=== PATIENT | female | born 1940 | race Caucasian/White ===

== ENCOUNTER 2016-09-02 00:27 | Inpatient (IN) | payer OTHER ==
[2016-09-02] VITALS (8 sets, daily range): BP systolic 121–186; BP diastolic 59–91; PULSE 60–100; RESP 16–20; TEMP 97–98.8; O2SAT 16–99
[~2016-09-02] VITALS: Ht 162.6 cm; Wt 44.9 kg
[2016-09-02] MEDS ORDERED: HYDR-4023 PO (01:09)
[2016-09-02] MEDS ORDERED: LOSA100T11 PO (01:09)
[2016-09-02] MEDS ORDERED: MELO15TA13 PO (01:09)
[2016-09-02] MEDS ORDERED: TRAM50TA92 PO (01:09)
[2016-09-02] MEDS ORDERED: ALEN10TA6 PO (01:10)
[2016-09-02] MEDS ORDERED: HYDROmorphone 1 MG INJ. 1 MG/ML AMPUL IVP ONE ×2 (01:15→05:00)
[2016-09-02 01:38] LABS: BASOPHILS % (AUTO) 0.3 % (0.0-2.0); EOSINOPHILS % (AUTO) 0.5 % (0.0-4.0); HEMATOCRIT 34.7 % (36-48); HEMOGLOBIN 11.4 g/dL (12.0-16.0); LYMPHOCYTES # (AUTO) 1.3 K/uL (1.0-5.5); LYMPHOCYTES % (AUTO) 15.2 % (20.5-51.5); MEAN CORPUSCULAR HEMOGLOBIN 28 pg (27-31); MEAN CORPUSCULAR HGB CONC 33 % (32-36); MEAN CORPUSCULAR VOLUME 85 fL (79.0-98.0); MONOCYTES # (AUTO) 1.1 K/uL (0.0-1.0); MONOCYTES % (AUTO) 12.5 % (1.7-9.3); NEUTROPHILS # (AUTO) 6.1 K/uL (1.8-7.7); NEUTROPHILS % (AUTO) 71.5 % (40.0-70.0); PLATELET COUNT (AUTO) 208 K/uL (130-430); RED BLOOD CELL COUNT(AUTO) 4.06 MIL/uL (4.2-6.2); RED CELL DISTRIBUTION WIDTH 12.4 % (9.0-15.0); WHITE BLOOD COUNT (AUTO) 8.5 K/uL (4.8-10.8)
[2016-09-02 01:45] LABS: ANION GAP 8 (5-15); CHLORIDE 104 mmol/L (98-107); GLUCOSE 131 mg/dL (70-99); POTASSIUM 3.5 mmol/L (3.5-5.1); SODIUM SERUM 139 mmol/L (136-145); UREA NITROGEN, BLOOD 19 mg/dL (8-21)
[2016-09-02 01:51] LABS: ALANINE AMINOTRANSFERASE 20 U/L (12-78); ALBUMIN 3.7 g/dL (3.4-4.8); ASPARTATE AMINOTRANSFERASE 20 U/L (10-37); TOTAL BILIRUBIN 0.6 mg/dL (0.0-1.0); TOTAL PROTEIN, SERUM 6.9 g/dL (6.4-8.3)
[2016-09-02] MEDS ORDERED: ACETAMINOPHEN 325 MG TABLET PO PRN (05:15)
[2016-09-02] MEDS ORDERED: LR 1,000 ML IV ONE (05:15)
[2016-09-02] MEDS ORDERED: ONDANSETRON HCL 4 MG/2 ML VIAL IVP PRN (05:15)
[2016-09-02] MEDS: HYDROcodone/ACETAMIN 10-325 MG TAB PO PRN (12:56)
[2016-09-02] MEDS ORDERED: DOCUSATE SODIUM 100 MG CAPSULE PO ONE (17:15)
[2016-09-02] MEDS ORDERED: MAGNESIUM CITRATE 300 ML ORAL SOLUTION PO ONE (17:15)
[2016-09-02] MEDS: DOCUSATE SODIUM 100 MG CAPSULE PO SCH (20:36)
[2016-09-03 00:44] VITALS: BP 140/66; PULSE 94; RESP 17; TEMP 99.1; O2SAT 96
[2016-09-03 04:00] VITALS: BP 132/64; PULSE 87; RESP 17; TEMP 98.9; O2SAT 95
[2016-09-03 07:56] LABS: BASOPHILS % (AUTO) 0.4 % (0.0-2.0); EOSINOPHILS # (AUTO) 0.1 K/uL (0.0-0.4); EOSINOPHILS % (AUTO) 0.9 % (0.0-4.0); HEMATOCRIT 31.7 % (36-48); HEMOGLOBIN 10.5 g/dL (12.0-16.0); LYMPHOCYTES # (AUTO) 1.2 K/uL (1.0-5.5); LYMPHOCYTES % (AUTO) 17.8 % (20.5-51.5); MEAN CORPUSCULAR HEMOGLOBIN 28 pg (27-31); MEAN CORPUSCULAR HGB CONC 33 % (32-36); MEAN CORPUSCULAR VOLUME 84 fL (79.0-98.0); MONOCYTES # (AUTO) 0.7 K/uL (0.0-1.0); MONOCYTES % (AUTO) 10.6 % (1.7-9.3); NEUTROPHILS % (AUTO) 70.3 % (40.0-70.0); PLATELET COUNT (AUTO) 199 K/uL (130-430); RED BLOOD CELL COUNT(AUTO) 3.76 MIL/uL (4.2-6.2); RED CELL DISTRIBUTION WIDTH 12.4 % (9.0-15.0)
[2016-09-03 08:00] VITALS: BP 148/75; PULSE 87; RESP 16; TEMP 97.8; O2SAT 97
[2016-09-03 08:05] LABS: INR 0.9 (0.8-1.2); PROTHROMBIN TIME 10.3 SECS (9.5-12.5)
[2016-09-03 08:17] LABS: ALANINE AMINOTRANSFERASE 18 U/L (12-78); ALBUMIN 3.1 g/dL (3.4-4.8); ANION GAP 6 (5-15); ASPARTATE AMINOTRANSFERASE 18 U/L (10-37); CALCIUM 8.2 mg/dL (8.4-11.0); CHLORIDE 106 mmol/L (98-107); CREATININE 0.44 mg/dL (0.55-1.30); GLUCOSE 114 mg/dL (70-99); LIPASE 180 U/L (73-393); POTASSIUM 3.8 mmol/L (3.5-5.1); SODIUM SERUM 138 mmol/L (136-145); TOTAL BILIRUBIN 0.8 mg/dL (0.0-1.0); TOTAL PROTEIN, SERUM 6.2 g/dL (6.4-8.3); UREA NITROGEN, BLOOD 13 mg/dL (8-21)
[2016-09-03] MEDS ORDERED: DIATR MEGLU/DIATRIZ SOD 30 ML SOLUTION PO ONE (08:37)
[2016-09-03] MEDS: HYDROcodone/ACETAMIN 10-325 MG TAB PO PRN ×2 (08:49→22:01)
[2016-09-03] MEDS: DOCUSATE SODIUM 100 MG CAPSULE PO SCH ×2 (09:00→21:00)
[2016-09-03] MEDS: POLYETHYLENE GLYCOL 3350, 17 GM/ POWD.PACK PO SCH (09:00)
[2016-09-03 12:00] VITALS: BP 150/67; PULSE 67; RESP 18; TEMP 97.4; O2SAT 100
[2016-09-03 17:00] VITALS: BP 126/58; PULSE 73; RESP 18; TEMP 98; O2SAT 96
[2016-09-03] MEDS ORDERED: BISACODYL 5 MG TABLET.DR (DULCOLAX) PO ONE (17:00)
[2016-09-03] MEDS ORDERED: GOLYTELY / COLYTE SOLUTION 4 LITERS PO ONE (18:00)
[2016-09-03 20:00] VITALS: BP 156/77; PULSE 66; RESP 18; TEMP 99.6; O2SAT 98
[2016-09-04 00:03] VITALS: BP 131/57; PULSE 83; RESP 17; TEMP 98.4; O2SAT 98
[2016-09-04 04:02] VITALS: BP 137/58; PULSE 88; RESP 15; TEMP 97.2; O2SAT 97
[2016-09-04] MEDS: HYDROmorphone 1 MG INJ. 1 MG/ML AMPUL IVP PRN ×3 (04:51→20:04)
[2016-09-04 07:28] LABS: BASOPHILS % (AUTO) 0.3 % (0.0-2.0); EOSINOPHILS # (AUTO) 0.1 K/uL (0.0-0.4); EOSINOPHILS % (AUTO) 0.6 % (0.0-4.0); HEMATOCRIT 32.3 % (36-48); HEMOGLOBIN 10.6 g/dL (12.0-16.0); LYMPHOCYTES # (AUTO) 1.3 K/uL (1.0-5.5); LYMPHOCYTES % (AUTO) 12.1 % (20.5-51.5); MEAN CORPUSCULAR HEMOGLOBIN 28 pg (27-31); MEAN CORPUSCULAR HGB CONC 33 % (32-36); MEAN CORPUSCULAR VOLUME 86 fL (79.0-98.0); MONOCYTES % (AUTO) 9.2 % (1.7-9.3); NEUTROPHILS % (AUTO) 77.8 % (40.0-70.0); PLATELET COUNT (AUTO) 182 K/uL (130-430); RED BLOOD CELL COUNT(AUTO) 3.78 MIL/uL (4.2-6.2); RED CELL DISTRIBUTION WIDTH 12.4 % (9.0-15.0); WHITE BLOOD COUNT (AUTO) 10.4 K/uL (4.8-10.8)
[2016-09-04] MEDS: DOCUSATE SODIUM 100 MG CAPSULE PO SCH ×2 (08:07→20:05)
[2016-09-04] MEDS: POLYETHYLENE GLYCOL 3350, 17 GM/ POWD.PACK PO SCH (08:08)
[2016-09-04 09:00] VITALS: BP 140/78; PULSE 95; RESP 18; TEMP 98; O2SAT 99
[2016-09-04] MEDS ORDERED: MIDAZOLAM HCL 5 MG/5 ML VIAL ONE (10:51)
[2016-09-04] MEDS ORDERED: SIMETHICONE 40 MG/0.6 ML ML ONE (10:52)
[2016-09-04 12:00] VITALS: BP 144/84; PULSE 94; RESP 21; TEMP 97.2; O2SAT 99
[2016-09-04] MEDS: MEPERIDINE HCL/PF 50 MG/ML AMP ONE ×6 (14:25→16:15)
[2016-09-04] MEDS: MIDAZOLAM HCL 5 MG/5 ML VIAL ONE ×7 (14:25→16:14)
[2016-09-04 14:29] VITALS: Ht 162.6 cm; Wt 44.9 kg
[2016-09-04 16:50] VITALS: BP 136/62; PULSE 80; RESP 17; TEMP 97.4; O2SAT 95
[2016-09-04] MEDS: HYDROcodone/ACETAMIN 10-325 MG TAB PO PRN (18:49)
[2016-09-04 19:30] VITALS: BP 152/75; PULSE 102; RESP 19; TEMP 97; O2SAT 99
[2016-09-05 04:00] VITALS: BP 140/77; PULSE 99; RESP 18; TEMP 98.3; O2SAT 97
[2016-09-05] MEDS: HYDROmorphone 1 MG INJ. 1 MG/ML AMPUL IVP PRN (06:14)
[2016-09-05 08:00] VITALS: BP 141/70; PULSE 102; RESP 18; TEMP 98.6; O2SAT 98
[2016-09-05] MEDS: DOCUSATE SODIUM 100 MG CAPSULE PO SCH (08:17)
[2016-09-05] MEDS: POLYETHYLENE GLYCOL 3350, 17 GM/ POWD.PACK PO SCH (08:17)
[2016-09-05 09:49] VITALS: BP 141/70; PULSE 122; RESP 18; TEMP 98.6; O2SAT 98
[2016-09-05] MEDS ORDERED: HYDR-1189 PO (12:22)
[2016-09-05] MEDS ORDERED: SENN-153 PO (12:23)
[2016-09-05 12:48] VITALS: BP 142/77; PULSE 104; RESP 18; TEMP 97.1; O2SAT 99
== END 2016-09-05 14:40 | disposition home or self-care (01) | DRG 436 ==
LOC: SED 00:27 → SMU 05:08
PROVIDERS: ADMIT Internal Medicine Hospice and Palliative Medicine; ATTEND Internal Medicine Hospice and Palliative Medicine
PROC: 0W9G3ZX Drainage of Peritoneal Cavity, Percutaneous Approach, Diagnostic (ICD-10-PCS; 2016-09-02)
PROC: 0DB98ZX Excision of Duodenum, Via Natural or Artificial Opening Endoscopic, Diagnostic (ICD-10-PCS; principal; 2016-09-04 13:00)
PROC: 0DJD8ZZ Inspection of Lower Intestinal Tract, Via Natural or Artificial Opening Endoscopic (ICD-10-PCS; 2016-09-04 13:00)
DX: C25.9 Malignant neoplasm of pancreas, unspecified (principal); E46 Unspecified protein-calorie malnutrition; R18.8 Other ascites; Z68.1 Body mass index [BMI] 19.9 or less, adult; K29.70 Gastritis, unspecified, without bleeding; I10 Essential (primary) hypertension; K57.90 Diverticulosis of intestine, part unspecified, without perforation or abscess without bleeding; K59.00 Constipation, unspecified; M81.0 Age-related osteoporosis without current pathological fracture; M19.90 Unspecified osteoarthritis, unspecified site; K44.9 Diaphragmatic hernia without obstruction or gangrene; K64.4 Residual hemorrhoidal skin tags; K64.8 Other hemorrhoids; F17.200 Nicotine dependence, unspecified, uncomplicated; T40.605A Adverse effect of unspecified narcotics, initial encounter; Z90.49 Acquired absence of other specified parts of digestive tract; Y92.89 Other specified places as the place of occurrence of the external cause; Z79.899 Other long term (current) drug therapy
CPT/HCPCS: 36415; 43239; 45378; 74270-TC; 76705; 76856-TC; 80053; 82378; 83690-TC; 85025; 85610-TC; 86301; 86304; 87081; 88305; 88313; 93005; 96374; 96376; 99285; J1170; J2175; J2250; J2405; Q9964